=== PATIENT | female | born 1980 | race Two or more races ===

== ENCOUNTER 2017-07-15 14:53 | Inpatient (IN) | payer OTHER ==
[~2017-07-15] VITALS: Ht 162.6 cm; Wt 85.2 kg
[~2017-07-15 14:53] MED LIST: ACTOS30 MG; ACTOS30 MG PO; ALTACE1.25 MG; ALTACE1.25 MG PO; AMARYL2 MG PO; BACTRIM,SEPT1 TABLET PO; CAMRESE 0.15-01 EACH PO; CLEOCIN; Dilaudid PO; FORTAMET500 M1 PO; Glucophage XR,Fortam PO; HABITROL,NICODE21 MG TD; HUMALOG100 UNIT/2 SC; HUMULIN NP100 UNIT/1 SC; INSULIN PUMP SCCONT; IRON325 MG PO; LANTUS 3 M100 UNITS1; LEVEMIR FL100 UNITS/ SC; LEVOTHYROXINE125 MCG; LEVOXYL150 MCG PO; LIPITOR20 MG PO; METFORMIN HCL500 MG; Motrin PO; NORCO 5/3251 TABLET PO; VICODIN 5-3001 EACH PO
[2017-07-15 15:18] LABS: POINT-OF-CARE METER ID UU13113778
[2017-07-15 15:22] LABS: ADD MIUA? YES; BILIRUBIN NEGATIVE; BLOOD SMALL; COLOR STRAW ((YELLOW)); GLUCOSE (STRIP) >=500; KETONES 80; LEUKOCYTES NEGATIVE; NITRITE NEGATIVE; PROTEIN (STRIP) 30; SPECIFIC GRAVITY 1.024 (1.000-1.030); UROBILINOGEN 0.2 MG/DL (0.2-1.0)
[2017-07-15 15:30] LABS: HEMATOCRIT 39.2 % (36.0-46.0); MCH 28.9 PG (29.0-34.0); MCHC 33.4 G/DL (30.0-36.0); MCV 86.3 FL (83-99); MEAN PLAT.VOLUME 9.3 uM^3 (9.5-12.4); PLATELET COUNT 542 K/uL (156-360); RBC DIS.WIDTH-CV 12.6 % (11.8-14.6); RBC DIS.WIDTH-SD 39.4 % (39-53); RED BLOOD COUNT 4.54 M/uL (3.80-5.20); WHITE BLOOD COUNT 18.8 K/uL (4.1-10.2)
[2017-07-15 15:34] LABS: BACTERIA NONE SEEN /HPF; EPITHELIAL CELLS RARE /HPF; MUCUS NONE SEEN /LPF; RED BLOOD CELLS 0-5 /HPF (0-5); UCUL ADDED? NO; WHITE BLOOD CELLS 0-5 /HPF (0-5)
[2017-07-15 15:39] LABS: CHLORIDE 105 mEq/L (99-109); POTASSIUM 4.4 mEq/L (3.7-5.4); SODIUM 134 mEq/L (136-147)
[2017-07-15 15:43] LABS: ANION GAP 20 MEQ/L (2-14)
[2017-07-15 15:44] LABS: TOTAL BILIRUBIN 0.7 mg/dL (0.0-1.0)
[2017-07-15 15:45] LABS: ALKALINE PHOSPHATASE 100 IU/L (3-129); GFR ESTIMATE (CALCULATED) > 59 mL/min/
[2017-07-15 15:46] LABS: UREA NITROGEN (BUN) 17 mg/dL (9-23)
[2017-07-15 15:48] LABS: GLUCOSE 420 mg/dL (70-99)
[2017-07-15 15:54] LABS: QUANTITATIVE HCG < 4.0 MIU/ML
[2017-07-15 16:11] LABS: CARBON DIOXIDE (BICARBONATE) 13.3 MEQ/L (20-31)
[2017-07-15] MEDS ORDERED: ALTACE5 MG PO (16:23)
[2017-07-15] MEDS ORDERED: METOPROLOL TART25 MG PO (16:24)
[2017-07-15] MEDS ORDERED: ADVIL,NUPRIN,M200 MG PO (16:25)
[2017-07-15] MEDS ORDERED: METFORMIN HCL500 M1 PO (16:25)
[2017-07-15 17:25] LABS: POINT-OF-CARE METER ID UU14100415
[2017-07-15 18:32] LABS: POINT-OF-CARE METER ID UU14100415
[2017-07-15 19:15] VITALS: BP 127/82
[2017-07-15 19:21] VITALS: BP 127/82
[2017-07-15 19:28] LABS: POINT-OF-CARE METER ID UU14314082
[2017-07-15 20:00] VITALS: BP 126/89
[2017-07-15 20:39] LABS: POINT-OF-CARE METER ID UU14314082
[2017-07-15 20:52] LABS: METH RESISTANT S AUREUS PCR NEGATIVE (NEGATIVE)
[2017-07-15 20:53] LABS: PROBE CHECK PASS; SPECIMEN PROCESSING CONTROL PASS
[2017-07-15 21:00] VITALS: BP 121/67
[2017-07-15 21:37] LABS: POINT-OF-CARE METER ID UU14314082
[2017-07-15 22:00] VITALS: BP 119/77
[2017-07-15 22:02] LABS: CHLORIDE 104 MEQ/L (99-109); GFR ESTIMATE (CALCULATED) > 59 mL/min/; GLUCOSE 309 mg/dL (70-99); POTASSIUM 4.6 MEQ/L (3.7-5.4); SODIUM 134 MEQ/L (136-147); UREA NITROGEN (BUN) 15 mg/dL (9-23)
[2017-07-15 22:04] LABS: ANION GAP 20 MEQ/L (2-14)
[2017-07-15 22:21] LABS: POINT-OF-CARE METER ID UU14314082
[2017-07-15 23:00] VITALS: BP 107/84
[2017-07-15 23:33] LABS: POINT-OF-CARE METER ID UU14314082
[2017-07-16] VITALS (13 sets, daily range): BP systolic 97–126; BP diastolic 58–88
[2017-07-16 00:25] LABS: CHLORIDE 110 mEq/L (99-109); POTASSIUM 4.7 mEq/L (3.7-5.4); SODIUM 134 mEq/L (136-147)
[2017-07-16 00:27] LABS: GLUCOSE 212 mg/dL (70-99)
[2017-07-16 00:28] LABS: ANION GAP 12 MEQ/L (2-14)
[2017-07-16 00:29] LABS: POINT-OF-CARE METER ID UU14314082
[2017-07-16 00:30] LABS: GFR ESTIMATE (CALCULATED) > 59 mL/min/
[2017-07-16 00:31] LABS: UREA NITROGEN (BUN) 14 mg/dL (9-23)
[2017-07-16 01:21] LABS: POINT-OF-CARE METER ID UU13113731
[2017-07-16 02:09] LABS: POINT-OF-CARE METER ID UU14314082
[2017-07-16 03:23] LABS: POINT-OF-CARE METER ID UU14314082
[2017-07-16 04:06] LABS: POINT-OF-CARE METER ID UU14314082; POINT-OF-CARE USER ID ENVSME70
[2017-07-16 05:00] LABS: POINT-OF-CARE METER ID UU14314082
[2017-07-16 05:33] LABS: ANION GAP 9 MEQ/L (2-14); CHLORIDE 110 MEQ/L (99-109); GFR ESTIMATE (CALCULATED) > 59 mL/min/; GLUCOSE 143 mg/dL (70-99); POTASSIUM 4.2 MEQ/L (3.7-5.4); SAMPLE HEMOLYSIS CHECK 0; SAMPLE ICTERIC CHECK 0; SAMPLE LIPEMIA CHECK 0; SODIUM 136 MEQ/L (136-147); UREA NITROGEN (BUN) 13 mg/dL (9-23)
[2017-07-16 05:58] LABS: POINT-OF-CARE METER ID UU14314082
[2017-07-16 06:51] LABS: Estimated Average Glucose 197 mg/dL (70-123); HEMOGLOBIN A1c (GLYCOHEMOGLOB) 8.5 % HGB (Below 5.7)
[2017-07-16 06:54] LABS: POINT-OF-CARE METER ID UU14314082; POINT-OF-CARE USER ID ENVSME70
[2017-07-16 08:09] LABS: POINT-OF-CARE METER ID UU13113803
[2017-07-16 08:40] LABS: ANION GAP 9 MEQ/L (2-14); CHLORIDE 110 MEQ/L (99-109); POTASSIUM 4.2 MEQ/L (3.7-5.4); SAMPLE HEMOLYSIS CHECK 0; SAMPLE ICTERIC CHECK 0; SAMPLE LIPEMIA CHECK 0; SODIUM 137 MEQ/L (136-147)
[2017-07-16 08:45] LABS: GFR ESTIMATE (CALCULATED) > 59 mL/min/; GLUCOSE 133 mg/dL (70-99); UREA NITROGEN (BUN) 12 mg/dL (9-23)
[2017-07-16 09:03] LABS: POINT-OF-CARE METER ID UU13113803
[2017-07-16 10:17] LABS: POINT-OF-CARE METER ID UU13113803
[2017-07-16 12:23] LABS: POINT-OF-CARE METER ID UU14162636
[2017-07-16 12:46] LABS: ANION GAP 7 MEQ/L (2-14); CHLORIDE 107 MEQ/L (99-109); POTASSIUM 3.8 MEQ/L (3.7-5.4); SAMPLE HEMOLYSIS CHECK 0; SAMPLE ICTERIC CHECK 0; SAMPLE LIPEMIA CHECK 0; SODIUM 132 MEQ/L (136-147)
[2017-07-16 12:51] LABS: GFR ESTIMATE (CALCULATED) > 59 mL/min/; GLUCOSE 159 mg/dL (70-99); UREA NITROGEN (BUN) 12 mg/dL (9-23)
[2017-07-16 13:37] LABS: POINT-OF-CARE METER ID UU13113803
== END 2017-07-16 16:23 | disposition home or self-care (01) | DRG 639 ==
LOC: EME 14:53 → 4WEST 17:43 → EDOF 17:43 → 4WEST 17:43 → ENRESERV 17:45 → 4WEST 19:01
PROVIDERS: Internal Medicine Critical Care Medicine; Nurse Practitioner Family
DX: E10.10 Type 1 diabetes mellitus with ketoacidosis without coma (principal); E86.0 Dehydration; I10 Essential (primary) hypertension; K21.9 Gastro-esophageal reflux disease without esophagitis; F41.9 Anxiety disorder, unspecified; E83.39 Other disorders of phosphorus metabolism; F17.200 Nicotine dependence, unspecified, uncomplicated; Z96.41 Presence of insulin pump (external) (internal); Z79.4 Long term (current) use of insulin
CPT/HCPCS: 80048; 80048 91; 80053; 81003; 82010; 82803; 82948; 83036; 83605; 84100; 84702; 85027; 87641; 99281; 99285; J1815; J2405; J7030; J7050; J7120